=== PATIENT | female | born 1960 | race Caucasian/White ===

== ENCOUNTER 2024-12-13 09:34 | Inpatient (IN) | payer MEDICAID, OTHER ==
[~2024-12-13 09:34] MED LIST: VITA100093 PO
[2024-12-13] MEDS: LORazepam 2 MG TAB PO ONE (09:50)
[2024-12-13 09:58] LABS: HEMATOCRIT 38.6 % (36.0-47.0); HEMOGLOBIN 12.8 g/dl (12.0-15.5); MEAN CORPUSCULAR HEMOGLOBIN 30.8 pg (27.0-33.0); MEAN CORPUSCULAR HGB CONC 33.2 g/dl (32.0-36.5); MEAN CORPUSCULAR VOLUME 92.8 fl (80.0-96.0); PLATELET COUNT, AUTOMATED 357 10^3/uL (150-450); RED BLOOD COUNT 4.16 10^6/uL (4.00-5.40); WHITE BLOOD COUNT 7.7 10^3/uL (4.0-10.0)
[2024-12-13 10:26] LABS: ETHYL ALCOHOL (ETHANOL) 0.004 % (0.000-0.010)
[2024-12-13 10:28] LABS: ALBUMIN 4.5 G/DL (3.2-5.2); ALKALINE PHOSPHATASE 86 U/L (35-104); ALT/SGPT 28 U/L (7.0-40); AST/SGOT 41 U/L (<34); BILIRUBIN,DIRECT 0.4 MG/DL (<0.4); BILIRUBIN,TOTAL 1.5 MG/DL (0.3-1.2); BLOOD UREA NITROGEN 28 MG/DL (9-23); CALCIUM LEVEL 9.6 MG/DL (8.3-10.6); CARBON DIOXIDE LEVEL 24 MMOL/L (20-31); CHLORIDE LEVEL 102 MMOL/L (98-107); CREATININE FOR GFR 0.88 MG/DL (0.55-1.30); GLOMERULAR FILTRATION RATE > 60.0 (>45); GLUCOSE, FASTING 105 MG/DL (74-106); POTASSIUM SERUM 3.9 MMOL/L (3.5-5.1); SALICYLATE LEVEL < 3.0 MG/DL (<30); SODIUM LEVEL 141 MMOL/L (136-145)
[2024-12-13] MEDS: LORazepam 2 MG/ML 1ML VIAL IM ONE ×2 (10:28→11:24)
[2024-12-13 10:32] LABS: THYROID STIMULATING HORMONE 2.888 uIU/ML (0.55-4.78)
[2024-12-13] MEDS: OLANZapine INTRAMUSCULAR 10MG VIAL IM ONE (11:24)
[2024-12-13 14:17] LABS: AMPHETAMINES LEVEL URINE NEGATIVE (NEGATIVE); BARBITURATES URINE NEGATIVE (NEGATIVE); BENZODIAZEPINES URINE NEGATIVE (NEGATIVE)
[2024-12-13 14:18] LABS: CANNABINOIDS URINE NEGATIVE (NEGATIVE); COCAINE METABOLITE URINE NEGATIVE (NEGATIVE); METHADONE URINE NEGATIVE (NEGATIVE); OPIATES URINE NEGATIVE (NEGATIVE); PHENCYCLIDINE URINE NEGATIVE (NEGATIVE)
[2024-12-13] MEDS ORDERED: HOME MED LIST COMPLETE! XX SCH (15:25)
[2024-12-13] MEDS ORDERED: diphenhydrAMINE 25MG CAP PO PRN (18:20)
[2024-12-13] MEDS ORDERED: IBUPROFEN 400MG TAB PO PRN (18:20)
[2024-12-13] MEDS ORDERED: MAALOX 30 ML SUSP *UDC PO PRN (18:20)
[2024-12-13] MEDS ORDERED: ACETAMINOPHEN 325 MG TAB PO PRN (18:20)
[2024-12-13] MEDS ORDERED: MOM 30ML SUSPENSION UDC PO PRN (18:20)
[2024-12-14] MEDS: LORazepam 1 MG TAB PO PRN (05:08)
[2024-12-14] MEDS: LORazepam 2 MG/ML 1ML VIAL IM STA ×2 (06:05→22:18)
[2024-12-14] MEDS: HALOPERIDOL LACTATE 5MG/ML VIAL IM STA ×2 (06:05→22:17)
[2024-12-14] MEDS: NICOTINE 14 MG/24 HR TRANSDERMAL TD SCH (09:00)
[2024-12-14] MEDS: OLANZapine 5 MG TAB PO SCH (13:51)
[2024-12-14 15:39] VITALS: BP 105/58; TEMP 97.4; O2SAT 97
[2024-12-15] MEDS: OLANZapine ORAL DISINTEGRATING TAB 5MG PO PRN (11:37)
[2024-12-15] MEDS: HALOPERIDOL LACTATE 5MG/ML VIAL IM ONE (15:03)
[2024-12-15] MEDS: LORazepam 2 MG/ML 1ML VIAL IM ONE (15:03)
[2024-12-15 15:48] VITALS: BP 110/70; TEMP 97.5; O2SAT 96
[2024-12-15] MEDS: HALOPERIDOL LACTATE 5MG/ML VIAL IM STA (20:58)
[2024-12-16 08:00] VITALS: BP 115/63; TEMP 97.8; O2SAT 99
[2024-12-16 17:16] VITALS: BP 114/62; TEMP 97.8; O2SAT 98
[2024-12-16 19:26] LABS: APPEARANCE, URINE HAZY (CLEAR); BACTERIA, URINE AUTO NEGATIVE (NEGATIVE); BILIRUBIN, URINE AUTO NEGATIVE (NEGATIVE); BLOOD, URINE BLOOD NEGATIVE (NEGATIVE); CALCIUM OXALATE CRYSTALS SMALL; COLOR, URINE YELLOW (YELLOW); GLUCOSE, URINE (UA) AUTO NEGATIVE (NEGATIVE); KETONE, URINE AUTO NEGATIVE (NEGATIVE); LEUKOCYTE ESTERASE, URINE AUTO TRACE (NEGATIVE); MUCUS, URINE SMALL (NEGATIVE); NITRITE, URINE AUTO NEGATIVE (NEGATIVE); PROTEIN, URINE AUTO NEGATIVE (NEGATIVE); RBC, URINE AUTO 1 /HPF (0-3); SPECIFIC GRAVITY URINE AUTO 1.024 (1.002-1.035); SQUAMOUS EPITHELIAL CELL UR AU 0 /HPF (0-6); WBC, URINE AUTO 5 /HPF (0-3)
[2024-12-16] MEDS: traZODone 50 MG TAB PO PRN (21:22)
[2024-12-17 15:58] VITALS: BP 142/82; TEMP 98.8; O2SAT 97
[2024-12-18 07:14] VITALS: BP 130/86; TEMP 98.2; O2SAT 97
[2024-12-18 15:18] VITALS: BP 126/70; TEMP 98.1; O2SAT 96
[2024-12-19 06:55] VITALS: BP 115/68; TEMP 97.9; O2SAT 98
[2024-12-19 17:19] VITALS: BP 123/77; TEMP 98.7; O2SAT 98
[2024-12-20 06:42] VITALS: BP 118/82; TEMP 97.5; O2SAT 97
[2024-12-20] MEDS ORDERED: OLAN1TAB16 PO (15:47)
[2024-12-20 16:09] VITALS: BP 118/72; TEMP 98.8
== END 2024-12-21 13:06 | disposition home or self-care (01) | DRG 751 ==
LOC: M ED 09:34 → M ED INP 18:17 → M PSY 20:25
PROVIDERS: ADMIT Psychiatry & Neurology Neurology; ATTEND Psychiatry & Neurology Neurology
DX: F29 Unspecified psychosis not due to a substance or known physiological condition (principal); R45.850 Homicidal ideations; R45.851 Suicidal ideations; Z88.0 Allergy status to penicillin; Z78.1 Physical restraint status; F31.9 Bipolar disorder, unspecified